=== PATIENT | male | born 1945 | race Caucasian/White ===

== ENCOUNTER 2016-08-08 09:46 | Inpatient (IN) | payer MEDICARE, OTHER ==
--- NOTE | 2016-08-08 10:31 | ED.PDOC ---
History of Present Illness - General Chief Complaint: Syncope/Near Syncope Stated Complaint: syncopal episode last night, dizzy Time Seen by Provider: 08/08/16 10:17 Source: patient, RN notes reviewed, Vital Signs reviewed, family Exam Limitations: no limitations - History of Present Illness Initial Comments: Patient is a 71 y/o male who was laying on the couch last night when he sat up and started coughing. He passed out and, according to his , he was not breathing for "a couple of minutes." She had to press on his stomach to get him breathing again. Before and after the syncope, patient had cold sweats, nausea, and shortness of breath. Patient did not come in last night. This morning, Patient was feeling well, so he went in to work. However, at about 0930, he started having the same sensation of nausea, cold sweats, shortness of breath and dizziness, so he came in to the ED. Timing/Duration: unsure, intermittent Severity: severe Improving Factors: nothing Worsening Factors: nothing Associated Symptoms: nausea/vomiting, shortness of breath, weakness Allergies/Adverse Reactions: Allergies Cephalexin [From Keflex] Allergy (Verified 08/08/16 10:21) Other Morphine Allergy (Verified 08/08/16 10:21) Shortness of Breath Home Medications: Ambulatory Orders Azithromycin [Zithromax Z-Emmett] 1 ea PO DAILY #1 pack 07/05/14 Metoprolol Succinate [Toprol Xl] 50 mg PO DAILY 07/05/14 predniSONE [Prednisone] 60 mg PO DAILY #12 tab 07/05/14 Review of Systems - Review of Systems Constitutional: States: chills, diaphoresis, weakness EENTM: States: no symptoms reported Respiratory: States: short of breath Cardiology: States: syncope. Denies: chest pain Gastrointestinal/Abdominal: States: nausea Genitourinary: States: no symptoms reported Musculoskeletal: States: no symptoms reported Skin: States: no symptoms reported Neurological: States: weakness Endocrine: States: excessive sweating Hematologic/Lymphatic: States: no symptoms reported Past Medical History (General) - Patient Medical History Hx Seizures: No Hx Stroke: No Hx Dementia: No Hx Asthma: No Hx of COPD: Yes Hx Cardiac Disorders: No Hx Congestive Heart Failure: No Hx Pacemaker: No Hx Hypertension: Yes Hx Thyroid Disease: No Hx Diabetes: No Hx Gastroesophageal Reflux: No Hx Renal Disease: No Hx Cancer: No Hx of HIV: No Hx Hepatitis C: No Hx MRSA: No Surgical History: other - Vaccination History Hx Tetanus, Diphtheria Vaccination: No Hx Influenza Vaccination: No Hx Pneumococcal Vaccination: Yes - Social History Hx Tobacco Use: Yes Cigarettes Packs Per Day: 2 Hx Chewing Tobacco Use: No Hx Alcohol Use: Yes - beer 6-8 q night Hx Substance Use: No Hx Substance Use Treatment: No Hx Depression: No Hx Physical Abuse: No Hx Emotional Abuse: No Hx Suspected Abuse: No - Activities of Daily Living Hospice Agency (if applicable):: None - Female History Patient is a Female of Child Bearing Age (10 -59 yrs old): No Patient : No Family Medical History - Family History Mother Family History: Unknown Physical Exam - Physical Exam General Appearance: Alert, Comfortable, No apparent distress Eye Exam: bilateral normal Ears, Nose, Throat: hearing grossly normal, normal ENT inspection Neck: non-tender, other - no carotid bruit Respiratory: chest non-tender, no respiratory distress, no accessory muscle use , decreased breath sounds, rhonchi, wheezing, expiration, inspiration Cardiovascular/Chest: normal peripheral pulses, regular rate, rhythm, no edema, no gallop, no murmur Gastrointestinal/Abdominal: normal bowel sounds, non tender, soft, no organomegaly, no pulsatile mass Back Exam: normal inspection Extremity: normal range of motion Neurologic: alert, normal mood/affect, oriented x 3 Skin Exam: normal color, warm/dry Progress - Results/Orders Results/Orders: Last Vital Signs Temp 97.7 F 08/08/16 09:50 Pulse 65 08/08/16 10:59 Resp 20 08/08/16 10:59 BP 198/101 08/08/16 10:59 Pulse Ox 93 L 08/08/16 10:59 08/08/16 10:00 LFT [HEPATIC FUNCTION PANEL] Stat 08/08/16 10:15 EKG STAT 08/08/16 10:15 EKG STAT Laboratory Results WBC 5.9 K/mm3 (4.8-10.8) 08/08/16 10:00 RBC 4.73 M/mm3 (4.70-6.10) 08/08/16 10:00 Hgb 15.7 gm/dL (14.0-18.0) 08/08/16 10:00 Hct 45.7 % (42.0-52.0) 08/08/16 10:00 MCV 96.7 fl (80.0-94.0) H 08/08/16 10:00 MCH 33.1 pg (27.0-31.0) H 08/08/16 10:00 MCHC 34.2 g/dL (33.0-37.0) 08/08/16 10:00 RDW 12.8 % (11.5-14.5) 08/08/16 10:00 Plt Count 278 K/mm3 (130-400) 08/08/16 10:00 MPV 7.4 fl (7.40-10.4) 08/08/16 10:00 Absolute Neuts (auto) 4.10 K/uL (1.8-6.8) 08/08/16 10:00 Absolute Lymphs (auto) 1.20 K/uL (1.0-3.4) 08/08/16 10:00 Absolute Monos (auto) 0.50 K/uL (0.2-0.8) 08/08/16 10:00 Absolute Eos (auto) 0.00 K/uL (0.0-0.4) 08/08/16 10:00 Absolute Basos (auto) 0.00 K/uL (0.0-0.1) 08/08/16 10:00 Neutrophils % 70.3 % (42.0-78.0) 08/08/16 10:00 Lymphocytes % 21.1 % (20.0-50.0) 08/08/16 10:00 Monocytes % 8.0 % (2.0-9.0) 08/08/16 10:00 Eosinophils % 0.3 % (1.0-5.0) L 08/08/16 10:00 Basophils % 0.3 % (0.0-2.0) 08/08/16 10:00 PT 11.9 SECONDS (9.4-12.5) 08/08/16 10:00 INR 1.060 08/08/16 10:00 PTT (SP) 31.8 SECONDS (25.1-36.5) 08/08/16 10:00 Sodium 126 mmol/L (135-145) L 08/08/16 10:00 Potassium 4.4 mmol/L (3.6-5.0) 08/08/16 10:00 Chloride 91 mmol/L (101-111) L 08/08/16 10:00 Carbon Dioxide 27 mmol/L (21-31) 08/08/16 10:00 Anion Gap 12.4 (12-18) 08/08/16 10:00 BUN 6 mg/dL (7-18) L 08/08/16 10:00 Creatinine 0.78 mg/dL (0.6-1.3) 08/08/16 10:00 BUN/Creatinine Ratio 7.7 (10-20) L 08/08/16 10:00 Random Glucose 113 mg/dL (70-105) H 08/08/16 10:00 Serum Osmolality 251.8 mOsm/L (275-295) L* 08/08/16 10:00 Calcium 9.2 mg/dL (8.4-10.2) 08/08/16 10:00 Magnesium 1.9 mg/dL (1.8-2.5) 08/08/16 10:00 Total Bilirubin 0.5 mg/dL (0.2-1.0) 08/08/16 10:00 Direct Bilirubin 0.2 mg/dL (0-0.2) 08/08/16 10:00 Indirect Bilirubin 0.3 mg/dL (0.2-0.8) 08/08/16 10:00 AST 28 IU/L (10-42) 08/08/16 10:00 ALT 24 IU/L (10-60) 08/08/16 10:00 Alkaline Phosphatase 56 IU/L (42-121) 08/08/16 10:00 Creatine Kinase 276 IU/L (38-174) H* 08/08/16 10:00 CK-MB (CK-2) 4.2 ng/mL (0.0-4.4) 08/08/16 10:00 CK-MB (CK-2) % 1.52 % (0.0-3.5) 08/08/16 10:00 Troponin I < 0.02 ng/mL (0.01-0.05) 08/08/16 10:00 B-Natriuretic Peptide 154.0 pg/ml (0-100) H 08/08/16 10:00 Serum Total Protein 8.4 gm/dL (6.4-8.2) H 08/08/16 10:00 Albumin 4.4 g/dl (3.2-5.5) 08/08/16 10:00 Globulin Cancelled 08/08/16 10:00 Albumin/Globulin Ratio Cancelled 08/08/16 10:00 - EKG/XRAY/CT EKG: Sinus, no ST T wave changes Comments: 63 bpm, Nml axis, Nml intervals, No comparison, NML ekg XRAY: chest Xray Comments: No acute process Departure - Departure Clinical Impression: Hyponatremia with decreased serum osmolality, Syncope and collapse, Elevated systolic blood pressure, COPD exacerbation Disposition: Admit Patient Condition: Fair Referrals: Anthony Chavarria MD [Primary Care Provider] - 1-2 Weeks Home Medications: Ambulatory Orders Azithromycin [Zithromax Z-Emmett] 1 ea PO DAILY #1 pack 07/05/14 Metoprolol Succinate [Toprol Xl] 50 mg PO DAILY 07/05/14 predniSONE [Prednisone] 60 mg PO DAILY #12 tab 07/05/14 Decision To Admit - Decistion To Admit Decision to Admit Reason: Admit from ER Decision to Admit Date: 08/08/16 Decision to Admit Time: 11:40
--- NOTE | 2016-08-08 10:56 | RAD ---
EXAM DESCRIPTION: X-RAY CHEST- TWO VIEWS CLINICAL HISTORY: Shortness of breath. COMPARISON: 07/05/2014 TECHNIQUE: 2.0 views of the chest FINDINGS: There are no discrete air space infiltrates, pneumothoraces or pleural effusions. The pulmonary vascularity is normal. The cardiomediastinal silhouette is unremarkable. IMPRESSION: There are no acute lung parenchymal findings. Electronically signed by: Michele Diaz MD 08/08/2016 10:54
[2016-08-08] MEDS ORDERED: METOPROLOL TARTRATE INJ 5 MG/5 ML VIAL IV ONE (11:27)
--- NOTE | 2016-08-08 12:21 | HP ---
HISTORY OF PRESENT ILLNESS: This 71 year-old white male is admitted to the hospital from the Emergency Room because of a couple of episodes of concern. Last evening, the patient was sleeping on the couch when he suddenly coughed and stopped breathing according to the . He apparently had stopped breathing for over a minute and she was very concerned, and he did not wake up until later. He stayed at home and slept the rest of the night, but then earlier today he was up sitting on a chair when he had a cold sweat, was nauseated and became sick to the stomach that he spit up some clear fluids from his stomach and very light-headed. No urinary incontinence was evident according to the patient. In the Emergency Room, he was found to have a very low sodium of126. His syncopal episode as well as his difficulty breathing and his previous history of chronic obstructive pulmonary disease in a chronic smoker resulted in the patient being admitted to the hospital for specific treatment including IV hydration and fluid restrictions, and repeat followup. The patient admits to drinking a lot of fluids usually up to 6 to 8 beers per day, 6 tea per day and 3 to 4 cups of coffee per day. He has had increased urine output. He also drinks about 3 ounces of pickle juice twice a day as needed for a cramping sensation in his upper abdomen in the region of the diaphragms when it is especially noticeable it hurts too bad to even take a breath. He has been fighting a cold for the last 2 weeks. Of note is that last evening when he had the syncopal episode on the cough, he had an urgency to go to the bathroom and had a large black stool much larger volume than usual. PAST MEDICAL HISTORY: 1. Hypertension. 2. Chronic obstructive pulmonary disease. PAST SURGICAL HISTORY: 1. Ankle fracture with hardware placed. CURRENT MEDICATIONS: 1. Metoprolol succinate 50 mg a day. 2. As needed some Equate pain medicine which appears to be Tylenol. ALLERGIES: MORPHINE WHICH RESULTS IN SEIZURE WHEN HE WAS ABOUT 12 YEARS OLD. 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 He still smokes about a pack and a half or so a day and has done so with a 70 pack year history. REVIEW OF SYSTEMS: No significant weight change recently. No fever or chills but he did feel a cold sweat earlier this morning when sitting up after breakfast. HEENT: No hearing or vision disturbances. LUNGS: Shortness of breath upon exertion and occasional cough noted recently with clear expectoration. CARDIOVASCULAR: No significant chest pains or palpitations. GASTROINTESTINAL: Some nausea with his current illness and large black bowel movements last evening. EXTREMITIES: No significant edema. NEUROLOGIC: Syncopal episode last evening with cessation of respirations for a while witnessed by the . No significant headaches. No focal weakness. PHYSICAL EXAMINATION: VITAL SIGNS: Afebrile, pulse 62, blood pressure 210/63, pulse oximetry 94% on room air. Weight 72.2 kilos. GENERAL: The patient is resting in the bed, alert, communicative and in no acute distress. HEENT: Unremarkable. NECK: Supple with no adenopathy. CHEST: Lungs have some diminished breath sounds with bilateral rhonchi. No significant rales. CARDIOVASCULAR: Heart tones regular without any significant gallop. ABDOMEN: Soft with increased bowel tones present. No organomegaly, masses or tenderness at this time. EXTREMITIES: Fairly well formed with only a trace of pedal edema. NEUROLOGIC: No focal neurological deficits. The patient is awake, alert and oriented, and communicative. LABORATORY: White count 5,900 with 70% neutrophils, hemoglobin 15.7, INR normal at 1.06. Chemistries show sodium very low at 126, potassium 4.4, chloride 91, BUN 6, creatinine 0.78, glucose 113, serum osmolality very low at 252, magnesium normal at 1.9. Liver enzymes normal. CK elevated at 276 with normal MB fraction and troponin zero. Beta natriuretic peptide 154. Albumin 4.4. Urine pending. No cultures. Chest x-ray within normal limits. ASSESSMENT: 1. Acute syncopal episode last evening while asleep on the couch with a spell of apnea witnessed by the of undetermined etiology, yet needs to have special attention with telemetry to evaluate for cardiac dysrhythmias or any neurological symptoms such as seizure. 2. Chronic obstructive pulmonary disease in a chronic smoker currently stable. 3. Severe hyponatremia results 126, symptomatic possibly contributing to his admission to the hospital. 4. Hypertension poorly controlled requiring increasing dosings of medications. 5. Free water overloaded probably secondary to polydipsia. 6. History of seizures as a child after receiving morphine but no seizure since. PLAN: The patient is admitted to the hospital for parenteral therapy including hypertonic saline initially with fluid restrictions and loop diuretic to help mobilize and get rid of some of the extra free water on board. Will do an ambulation study to evaluate for the need of oxygen with his chronic smoking history. Repeat lab, including hemoglobin A1c in the morning. Check stools for guaiac blood because of the history of black stools. Close followup suggested. Add Lisinopril to the Metoprolol to see if it will help with some of the blood pressure control. #[id number] [facility]
[2016-08-08] MEDS ORDERED: ACETAMINOPHEN 325 MG TAB PO PRN (16:09)
[2016-08-08] MEDS ORDERED: SODIUM CHLORIDE 0.9% (FLUSH) 10 ML SYG IV PRN (16:09)
[2016-08-08] MEDS ORDERED: ALUM & MAG HYDROX-SIMETHICONE 30 ML UD PO PRN (16:09)
[2016-08-08] MEDS ORDERED: MAGNESIUM HYDROXIDE 30 ML UD PO PRN (16:09)
[2016-08-08] MEDS ORDERED: LEVALBUTEROL NEBS 1.25 MG/3 ML VIAL NEB PRN (16:09)
[2016-08-08] MEDS ORDERED: ONDANSETRON INJ 4 MG/2 ML VIAL IV PRN (16:09)
[2016-08-08] MEDS ORDERED: SODIUM CHLORIDE 0.9% 1000ML 1,000 ML IVS PRN (16:19)
[2016-08-08] MEDS ORDERED: SOD CHL 3% *HYPERTONIC* 500ML 300 ML IVS ONE (16:21)
[2016-08-08] MEDS ORDERED: BENZONATATE PERLES 100 MG CAP PO PRN (16:23)
[2016-08-08] MEDS ORDERED: IV SET AND CAP CHANGE INJ INJ SCH (16:30)
[2016-08-08] MEDS: IPRATROPIUM/ALBUTEROL 3 ML VIAL INH SCH ×2 (17:12→20:16)
[2016-08-08] MEDS: METOPROLOL TARTRATE 50 MG TAB PO SCH (17:27)
[2016-08-08] MEDS: FUROSEMIDE INJ 20 MG/2 ML VIAL IV SCH (17:27)
[2016-08-08] MEDS: LISINOPRIL 5 MG TAB PO SCH (17:28)
[2016-08-08] MEDS ORDERED: FUROSEMIDE 40 MG TAB PO ONE (21:00)
[2016-08-09] MEDS ORDERED: OMEPRAZOLE CAP 20 MG CAP PO SCH (06:30)
[2016-08-09] MEDS: METOPROLOL TARTRATE 50 MG TAB PO SCH (07:40)
[2016-08-09] MEDS: IPRATROPIUM/ALBUTEROL 3 ML VIAL NEB SCH ×2 (09:55→13:15)
[2016-08-09 10:38] VITALS: TEMP 98.3; O2SAT 95
[2016-08-09] MEDS: LISINOPRIL 5 MG TAB PO SCH (10:56)
[2016-08-09] MEDS: FUROSEMIDE INJ 20 MG/2 ML VIAL IV SCH (10:56)
[2016-08-09] MEDS ORDERED: POTASSIUM CHLORIDE 10 MEQ TAB PO SCH (13:00)
[2016-08-09 14:13] VITALS: BP 189/83
--- NOTE | 2016-08-09 15:49 | DS ---
DISCHARGE DIAGNOSIS: 1. Marked hyponatremia, symptomatic, possibly contributing to the significant symptoms of malaise and syncopal episodes contributing to his hospital admission. 2. Acute syncopal episode last evening with loss of consciousness with almost complete resolution of his neurologic symptom deficits requiring telemetry and close followup. 3. Chronic obstructive pulmonary disease in a chronic smoker, currently stable. 4. Hypertension, poorly controlled requiring changing and increasing dosings of medications. 5. Evidence of free water overloaded, probably secondary to polydipsia with associated low serum osmolality. 6. History of seizures as a child after receiving morphine, but no seizure since. HISTORY OF PRESENT ILLNESS: This 71-year-old, white male was admitted to the hospital from the Emergency Room after his found him unconscious on the couch after a coughing spell. He stopped breathing for a significant period of time until he spontaneously started breathing and then and only then did he slowly recover his consciousness. No previous history of similar symptoms in the past. The possibility of a cardiac dysrhythmia versus a vasovagal response from his cough must be considered. He had nausea and vomiting, cold sweat and generalized malaise subsequently. In the Emergency Room, he was showing some improvement in his mentation, but was noted to have a very low sodium of 126. He admits to drinking a lot of fluids, up to 6 to 8 beers per day, 6 large glasses of tea per day and 3 to 4 cups of coffee per day as well as water. A lot of urine output as well. He has also been drinking pickle juice to help with cramping sensation which has not been present as his sodium has returned towards normal. He has had an upper respiratory infection recently which seems to have also shown improvement. LABORATORY: Initial sodium was 126, up to 134 with hypertonic saline and fluid restrictions and loop diuresis. Potassium dropped to 3.8 and he will take some supplements to maintain in normal limits. BUN 9, creatinine 0.73, glucose 103, hemoglobin A1c 5.4. Serum osmolality up from 252 up to 267. Liver enzymes normal. CK up to 316 while troponin is 0. Beta natriuretic peptide 154, albumin 3.9. White count normal at 5.8, hemoglobin 14, INR 1.06. Urinalysis showed some hematuria with no cultures obtained. Chest x-ray was performed and reveals no acute findings noted. HOSPITAL COURSE: The patient was feeling dramatically improved on the morning of discharge. He was able to ambulate. No evidence of lightheadedness or near syncopal symptoms were evident. No cardiac dysrhythmias evident on telemetry. Blood pressure is up, which needs further stabilization. Of note is that he has been tried on lisinopril years ago which caused him to be confused, so BRENDA inhibitors will be held off at this time as increased dose of metoprolol is initiated with close clinic followup. The patient is very much willing and wanting to have further outpatient followup and management at the time of discharge because of the improvement in his electrolytes overnight and his general condition improving substantially subsequently. PLAN: Discharged home with followup with Dr. Chavarria next Tuesday at an appointment already made. He will continue his home medications except increase the metoprolol succinate to 50 mg twice a day. If this controls his blood pressure elevation, then consider switching to metoprolol tartrate which is less expensive. Dr. Chavarria will adjust the dose and even add a new family of medicine such as a calcium channel or other type of antihypertensive medicine to work with the beta blockade as needed to assist in control. He is encouraged to limit his total fluids during the day to 1800 mL or less per day. Avoid dehydration. Specific attention to avoid over dilution which contributed to his hyponatremia on admission. Dr. Chavarria will follow electrolytes and renal function in the office as needed. Stay active. Return if not improving. #[id number] [facility]
== END 2016-08-09 14:30 | disposition home or self-care (01) | DRG 641 ==
LOC: ER 09:46 → MS 12:20
PROVIDERS: ADMIT Emergency Medicine; ATTEND Emergency Medicine
DX: E87.1 Hypo-osmolality and hyponatremia (principal); R55 Syncope and collapse; G47.30 Sleep apnea, unspecified; R63.1 Polydipsia; J44.9 Chronic obstructive pulmonary disease, unspecified; F17.210 Nicotine dependence, cigarettes, uncomplicated; I10 Essential (primary) hypertension; Z79.899 Other long term (current) drug therapy; Z88.5 Allergy status to narcotic agent; Z79.52 Long term (current) use of systemic steroids

== ENCOUNTER → 2017-05-30 | Outpatient (CLI) | payer MEDICARE, OTHER | END | disposition home or self-care (01) | LOC: GMAH 11:48 | PROVIDERS: ATTEND Family Medicine | DX: Z12.5 Encounter for screening for malignant neoplasm of prostate (principal); I10 Essential (primary) hypertension | CPT/HCPCS: 84443; 84550; G0103 ==

== ENCOUNTER → 2017-09-12 | Outpatient (CLI) | payer MEDICARE, OTHER ==
--- NOTE | 2017-09-12 10:44 | US ---
EXAM DESCRIPTION: Carotid Duplex CLINICAL HISTORY: OCCLUSION AND STENOSIS OF BILATERAL CAROTID ARTERIES COMPARISON: None Available. TECHNIQUE: Color Doppler evaluation of the extracranial carotids FINDINGS: Right carotid: There is diffuse moderate intimal thickening throughout the right common carotid artery. There is moderate mostly noncalcified hypoechoic plaque in the carotid bulb extending into the internal carotid artery. Peak systolic velocity common carotid artery = 65 cm/s Peak systolic velocity internal carotid artery = 320 cm/s Peak systolic velocity external carotid artery = 78 cm/s ICA CCA ratio 4.9 Left carotid: There is moderate diffuse intimal thickening throughout the left common carotid artery. There is mild heterogeneous partly calcified plaque in the carotid bulb to proximal internal carotid artery. Peak systolic velocity common carotid artery = 85 cm/s Peak systolic velocity internal carotid artery = 66 cm/s Peak systolic velocity external carotid artery = 81 cm/s ICA CCA ratio 0.8 Antegrade flow is seen in both vertebral arteries Normal flow velocities and waveforms are demonstrated bilaterally. IMPRESSION: There is moderate mostly noncalcified soft plaque in the right carotid bulb extending into the proximal internal carotid artery. Velocities and ratios are elevated in the right internal carotid artery consistent with 80-99% stenosis by ultrasound criteria. Mild irregular partly calcified plaque in the left carotid bulb to proximal ICA seen with ultrasound findings to suggest less than 39% stenosis. Electronically signed by: Ismael Quintanilla MD 09/12/2017 10:43 AM [employer]
== END ==
LOC: US 10:00
PROVIDERS: ATTEND Family Medicine
DX: I65.23 Occlusion and stenosis of bilateral carotid arteries (principal)

== ENCOUNTER → 2020-06-02 | Outpatient (CLI) | payer MEDICARE, OTHER ==
--- NOTE | 2020-06-02 18:39 | US ---
EXAM DESCRIPTION: Soft Tissue,Extremity: ULTRASOUND. CLINICAL HISTORY: 75 years Male LOCALIZED SWELLING, MASS AND LUMP LEFT KNEE CYST. 6 weeks duration. No trauma. COMPARISON: None Available. TECHNIQUE: Transcutaneous scanning: Mojica-scale and Doppler modes. FINDINGS: Scanning the area of palpable lump/mass distal lateral left knee. Cyst like fluid collections. One measures 3.2 x 2.1 x 0.6 cm. Irregular jason. Parallel orientation. Nonvascular. Second fluid collection measures 3.2 x 2.7 x 0.9 cm. Irregular jsaon. Nonvascular. Parallel orientation. No dominant soft tissue mass, no simple cyst, no large calcifications. IMPRESSION: 2 fluid collections bilateral distal left knee, nonvascular. No fluid/Solid levels. Electronically signed by: Mckay Villalba MD 06/02/2020 6:38 PM CDT
== END ==
LOC: US 09:31
PROVIDERS: ATTEND Family Medicine
DX: R22.42 Localized swelling, mass and lump, left lower limb (principal)

== ENCOUNTER → 2020-09-30 | Outpatient (CLI) | payer MEDICARE, OTHER | LOC: GMA MATASK 11:27 | PROVIDERS: ATTEND Family Medicine | DX: N40.1 Benign prostatic hyperplasia with lower urinary tract symptoms (principal); E03.9 Hypothyroidism, unspecified; I10 Essential (primary) hypertension ==